=== PATIENT | female | born 1980 | race Caucasian/White ===

== ENCOUNTER 2020-09-02 20:07 | Emergency (ER) | payer OTHER | END 2020-09-02 20:13 | disposition home or self-care (01) | LOC: JVIRT 20:07 | DX: Z11.59 Encounter for screening for other viral diseases (principal) | CPT/HCPCS: C9803; G2012-GT; U0003 ==

== ENCOUNTER 2020-09-09 19:03 | Emergency (ER) | payer OTHER | END 2020-09-09 19:15 | disposition home or self-care (01) | LOC: JVIRT 19:03 | DX: Z03.818 Encounter for observation for suspected exposure to other biological agents ruled out (principal) | CPT/HCPCS: C9803; G2012-GT; U0003 ==

== ENCOUNTER 2020-09-16 20:23 | Emergency (ER) | payer OTHER | END 2020-09-16 21:17 | disposition home or self-care (01) | LOC: JVIRT 20:23 | DX: Z03.818 Encounter for observation for suspected exposure to other biological agents ruled out (principal) | CPT/HCPCS: C9803; G2012-GT; U0003 ==

== ENCOUNTER 2020-11-16 13:35 | Emergency (ER) | payer OTHER | END 2020-11-16 13:58 | disposition home or self-care (01) | LOC: JVIRT 13:35 | DX: Z11.52 Encounter for screening for COVID-19 (principal) | CPT/HCPCS: C9803; G2012-GT; U0003 ==

== ENCOUNTER 2022-04-10 07:53 | Emergency (ER) | payer OTHER ==
[2022-04-10 07:58] VITALS: BP 124/76; PULSE 72; TEMP 98.3; BMI 41.5
[2022-04-10 09:14] LABS: CALCIUM OXALATE CRYSTALS RARE /hpf (NONE SEEN); EPITHELIAL CELLS FEW /hpf
== END 2022-04-10 09:14 | disposition home or self-care (01) ==
LOC: FER 07:53
DX: R30.0 Dysuria (principal)
CPT/HCPCS: 81003; 81015; 84703; 87086; 87186; 99283-25

== ENCOUNTER 2022-06-14 19:19 | Emergency (ER) | payer OTHER ==
[2022-06-14 20:04] VITALS: BP 133/85; PULSE 96; RESP 18; TEMP 98.3; BMI 41.5
== END 2022-06-14 22:12 | disposition home or self-care (01) ==
LOC: FER 19:19
DX: R30.0 Dysuria (principal)
CPT/HCPCS: 81003; 81025; 87086; 87186; 99283-25

== ENCOUNTER 2023-08-03 23:06 | Emergency (ER) | payer OTHER ==
[2023-08-03 23:27] VITALS: BP 144/84; PULSE 102; RESP 16; TEMP 99.2; BMI 41.9
== END 2023-08-04 00:38 | disposition home or self-care (01) ==
LOC: FER 23:06
DX: J02.9 Acute pharyngitis, unspecified (principal); R50.9 Fever, unspecified; R51.9 Headache, unspecified; R09.81 Nasal congestion; B34.9 Viral infection, unspecified; Z20.822 Contact with and (suspected) exposure to COVID-19
CPT/HCPCS: 0241U-QW; 87651; 99283-25

== ENCOUNTER 2024-08-29 00:44 | Emergency (ER) | payer OTHER ==
[2024-08-29 00:50] VITALS: BP 114/77; PULSE 104; RESP 20; TEMP 98.1; BMI 42.7
[2024-08-29 03:00] LABS: EPI CELLS 12 /uL (0-25.1); HYALINE CASTS 1 /uL (0-3.1); URINE APPEARANCE CLOUDY; URINE BILIRUBIN 2+ (NEGATIVE); URINE COLOR ORANGE; URINE GLUCOSE (UA) NEGATIVE (NEGATIVE); URINE KETONE NEGATIVE (NEGATIVE); URINE LEUK ESTERASE 2+ (NEGATIVE); URINE NITRITE POSITIVE (NEGATIVE); URINE PROTEIN 2+ (NEGATIVE); URINE WBC 324 /uL (0-25.8)
[2024-08-29 03:25] LABS: THROAT:GRP A STREP NOT DETECTED (NOTDETECTED)
[2024-08-29] MEDS ORDERED: PHENAZOPYRIDINE HCL 100 MG TABLET (FP) ONE (03:25)
[2024-08-29] MEDS ORDERED: CEPHALEXIN MONOHYDRATE 500 MG CAPSULE (UD) ONE (03:25)
[2024-08-29] MEDS: CEPHALEXIN MONOHYDRATE 500 MG CAPSULE (UD) PO ONE (03:36)
[2024-08-29 06:00] LABS: URINE BACTERIA 205 /uL (0-1359); URINE RBC 23 /uL (0-23.9)
[2024-08-29 06:01] LABS: URINE CRYSTALS PRESENT /hpf
== END 2024-08-29 03:45 | disposition home or self-care (01) ==
LOC: FER 00:44
DX: N30.01 Acute cystitis with hematuria (principal); Z20.822 Contact with and (suspected) exposure to COVID-19
CPT/HCPCS: 0241U-QW; 81003; 84703; 87086; 87186; 87651; 99283-25

== ENCOUNTER 2025-02-16 07:22 | Day surgery (SDC) | payer OTHER ==
[2025-02-13 14:30] VITALS: BMI 41.1
[2025-02-16 07:40] VITALS: RESP 18
[2025-02-16 08:57] VITALS: TEMP 97.7
[2025-02-16 09:13] VITALS: BP 107/67; PULSE 102
== END 2025-02-16 09:36 | disposition home or self-care (01) ==
LOC: FASU-ENDO 07:22
PROVIDERS: ATTEND Internal Medicine Gastroenterology
PROC: 0DB68ZX Excision of Stomach, Via Natural or Artificial Opening Endoscopic, Diagnostic (ICD-10-PCS; 2025-02-16)
PROC: 0DB48ZX Excision of Esophagogastric Junction, Via Natural or Artificial Opening Endoscopic, Diagnostic (ICD-10-PCS; 2025-02-16)
PROC: 0DB98ZX Excision of Duodenum, Via Natural or Artificial Opening Endoscopic, Diagnostic (ICD-10-PCS; principal; 2025-02-16 08:33)
DX: K29.50 Unspecified chronic gastritis without bleeding (principal); K20.90 Esophagitis, unspecified without bleeding; R10.13 Epigastric pain; R11.0 Nausea
CPT/HCPCS: 81025; 82962; 88305-TC; 88342-TC